=== PATIENT | male | born 1970 | race Caucasian/White ===

== ENCOUNTER 2016-12-11 15:35 | Emergency (ER) | payer OTHER ==
[~2016-12-11] VITALS: Ht 182.9 cm; Wt 111.1 kg
[2016-12-11] MEDS ORDERED: ONDANSETRON PF 4 MG/2 ML VIAL. IV ONE (16:00)
[2016-12-11] MEDS ORDERED: fentaNYL PF VIAL 100 MCG/2 ML VIAL IV ONE ×2 (16:00→17:00)
[2016-12-11] MEDS ORDERED: IV NORMAL SALINE 1000ML BAG 1,000 ML IV ONE ×2 (16:00→17:30)
[2016-12-11] MEDS ORDERED: METOCLOPRAMIDE HCL 10 MG/2 ML VIAL. IV ONE (16:00)
[2016-12-11] MEDS ORDERED: PROCHLORPERAZINE 10 MG/2 ML VIAL. IV ONE (16:00)
[2016-12-11 16:13] LABS: BASO % 1 % (0-3); EOS % 2 % (0-3); HEMATOCRIT 46.6 % (39.0-53.0); HEMOGLOBIN 15.7 g/dL (13.0-17.5); LYMPH # 1.4 x10^3/uL (1.0-4.8); LYMPH % 18 % (24-48); MEAN CORPUSCULAR HEMOGLOBIN 31 pg (25-35); MEAN CORPUSCULAR HGB CONC 34 g/dL (31-37); MEAN CORPUSCULAR VOLUME 91 fL (79-100); MONO % 6 % (0-9); NEUT % 74 % (31-73); PLATELET COUNT 212 x10^3/uL (140-400); RED BLOOD COUNT 5.14 x10^6/uL (4.30-5.70); RED CELL DISTRIBUTION WIDTH 13.7 % (11.5-14.5); WHITE BLOOD COUNT 7.9 x10^3/uL (4.0-11.0)
[2016-12-11 16:22] LABS: CALCIUM 8.8 mg/dL (8.5-10.1); CREATININE 0.9 mg/dL (0.7-1.3); GFR 90.1; POTASSIUM 4.1 mmol/L (3.5-5.1)
[2016-12-11 16:27] LABS: ALBUMIN 3.5 g/dL (3.4-5.0); ALBUMIN/GLOBULIN RATIO 0.9 (1.0-1.7); TOTAL BILIRUBIN 0.7 mg/dL (0.2-1.0); TOTAL PROTEIN 7.2 g/dL (6.4-8.2)
--- NOTE | 2016-12-11 16:39 | RAD ---
Exam performed: CT scan of the head without contrast. Date of Service: 12/11/16. Comparison: None available. Clinical History: Back headache, patient seen flashing lights with nausea and vomiting. Technique: Helical acquisitions are obtained from the foramen magnum to the vertex without intravenous administration of contrast. Findings: The ventricles are midline without evidence of dilatation. Normal matt-white differentiation is maintained. There is no extra axial fluid collection, intraparenchymal hemorrhage or mass lesion. The visualized portions of the orbits, paranasal sinuses and the mastoid air cells appear clear. The calvarium is intact. Impression: 1. No acute intracranial process detected. PQRS Compliance Statement: One or more of the following individualized dose reduction techniques were utilized for this examination: 1. Automated exposure control 2. Adjustment of the mA and/or kV according to patient size 3. Use of iterative reconstruction technique
--- NOTE | 2016-12-11 16:46 | ED.ADGEN ---
Past Medical History Past Medical History: Diabetes-Type II Past Surgical History: No Surgical History Alcohol Use: Rarely Drug Use: None Adult General Chief Complaint Chief Complaint: HEADACHE HPI HPI Patient is a 46 year old male presents with intermittent daily headaches for the past several days. Patient states this current headache began abruptly approximately 4-1/2 hours prior to ED arrival. Associated symptoms include vision changes the present of the lines and visual santo. Patient describes it as dull throbbing located over the back of his head radiating to both temples. Patient denies neck pain or stiffness. He relates his headaches to workplace stress is the most frequently occur while he is working at home. Patient denies recent illnesses. No history of trauma. Patient states that her mother has history of cerebral aneurysms. Patient noted to be hypertensive on ED arrival, but states blood pressure is normally well controlled. Review of Systems Review of Systems ROS as per HPI. Current Medications Current Medications Current Medications Medications (Trade) Dose Ordered Sig/Waqar Start Time Stop Time Status Last Admin Dose Admin Diphenhydramine HCl (Benadryl) 50 mg 1X ONCE 12/11/16 19:00 12/11/16 19:01 DC 12/11/16 18:54 50 MG Fentanyl Citrate (Fentanyl 2ml Vial) 50 mcg 1X ONCE 12/11/16 17:00 12/11/16 17:01 DC 12/11/16 17:05 50 MCG Info (Do NOT chart on this entry -- for MONITORING) 1 each PRN DAILY PRN 12/11/16 17:00 12/13/16 16:59 Iohexol (Omnipaque 350 Mg/ml) 100 ml 1X ONCE 12/11/16 17:00 12/11/16 17:01 DC 12/11/16 17:00 100 ML Metoclopramide HCl (Reglan) 10 mg 1X ONCE 12/11/16 16:00 12/11/16 16:01 DC 12/11/16 16:11 10 MG Ondansetron HCl (Zofran) 4 mg 1X ONCE 12/11/16 16:00 12/11/16 16:01 DC 12/11/16 16:12 4 MG Prochlorperazine Edisylate (Compazine) 10 mg 1X ONCE 12/11/16 16:00 12/11/16 16:01 DC 12/11/16 16:12 10 MG Sodium Chloride 1,000 ml @ 1,000 mls/hr 1X ONCE 12/11/16 17:30 12/11/16 18:29 DC 12/11/16 18:54 1,000 MLS/HR Allergies Allergies Allergies Coded Allergies Type Severity Reaction Last Updated Verified No Known Drug Allergies 12/11/16 No Physical Exam Physical Exam Constitutional: Well developed, well nourished, moderate discomfort secondary pain. HENT: Normocephalic, atraumatic, bilateral external ears normal, oropharynx moist, no oral exudates, nose normal. Eyes: PERRLA, EOMI, photophobia. Neck: Normal range of motion, no tenderness. Cardiovascular:Heart rate regular rhythm. Lungs & Thorax: Bilateral breath sounds clear to auscultation. Abdomen: Bowel sounds normal, soft, no tenderness. Skin: Warm, dry. Back: No tenderness. Extremities: No tenderness, no cyanosis, no clubbing, ROM intact, no edema. Neurologic: Alert and oriented X 3, normal motor function, normal sensory function, no focal deficits noted. Psychologic: Affect normal, judgement normal, mood normal. Current Patient Data Vital Signs Vital Signs Date Time Temp Pulse Resp B/P (MAP) Pulse Ox O2 Delivery O2 Flow Rate FiO2 12/11/16 19:30 87 18 129/66 (87) 98 Room Air 12/11/16 15:49 98.7 98.7 Lab Values Laboratory Tests Test 12/11/16 16:00 White Blood Count 7.9 x10^3/uL (4.0-11.0) Red Blood Count 5.14 x10^6/uL (4.30-5.70) Hemoglobin 15.7 g/dL (13.0-17.5) Hematocrit 46.6 % (39.0-53.0) Mean Corpuscular Volume 91 fL (79-100) Mean Corpuscular Hemoglobin 31 pg (25-35) Mean Corpuscular Hemoglobin Concent 34 g/dL (31-37) Red Cell Distribution Width 13.7 % (11.5-14.5) Platelet Count 212 x10^3/uL (140-400) Neutrophils (%) (Auto) 74 % (31-73) H Lymphocytes (%) (Auto) 18 % (24-48) L Monocytes (%) (Auto) 6 % (0-9) Eosinophils (%) (Auto) 2 % (0-3) Basophils (%) (Auto) 1 % (0-3) Neutrophils # (Auto) 5.8 x10^3uL (1.8-7.7) Lymphocytes # (Auto) 1.4 x10^3/uL (1.0-4.8) Monocytes # (Auto) 0.5 x10^3/uL (0.0-1.1) Eosinophils # (Auto) 0.2 x10^3/uL (0.0-0.7) Basophils # (Auto) 0.0 x10^3/uL (0.0-0.2) Sodium Level 136 mmol/L (136-145) Potassium Level 4.1 mmol/L (3.5-5.1) Chloride Level 99 mmol/L (98-107) Carbon Dioxide Level 26 mmol/L (21-32) Anion Gap 11 (6-14) Blood Urea Nitrogen 11 mg/dL (8-26) Creatinine 0.9 mg/dL (0.7-1.3) Estimated GFR (Cockcroft-Gault) 90.1 BUN/Creatinine Ratio 12 (6-20) Glucose Level 307 mg/dL (70-99) H Calcium Level 8.8 mg/dL (8.5-10.1) Total Bilirubin 0.7 mg/dL (0.2-1.0) Aspartate Amino Transferase (AST) 20 U/L (15-37) Alanine Aminotransferase (ALT) 30 U/L (16-63) Alkaline Phosphatase 76 U/L (46-116) Total Protein 7.2 g/dL (6.4-8.2) Albumin 3.5 g/dL (3.4-5.0) Albumin/Globulin Ratio 0.9 (1.0-1.7) L Laboratory Tests 12/11/16 16:00 Laboratory Tests 12/11/16 16:00 EKG EKG [] Radiology/Procedures Radiology/Procedures [CT head: No acute disease per radiology report] CT angiogram head and neck: Moderate right vertebral artery stenosis no evidence of aneurysm. Impressions: Gen. headache without apparent cause Course & Med Decision Making Course & Med Decision Making Pertinent Labs and Imaging studies reviewed. (See chart for details) [. Worse headache of life. Narcotics, antiemetics given with limited improvement. CT imaging negative for acute aneurysm patient with moderate improvement while in the ED, request discharge home. Patient instructed to follow up with PCP for evaluation of a vertebral artery disease. She restarted on home diabetic medications. Return precautions reviewed.] Fernando Disclaimer Fernando Disclaimer This electronic medical record was generated, in whole or in part, using a voice recognition dictation system. CARLITOS CUMMINGS DO December 11, 2016 16:46
[2016-12-11] MEDS ORDERED: IOHEXOL 350 MG/ML 100 ML VIAL. IV ONE (17:00)
[2016-12-11] MEDS ORDERED: CONTRAST GIVEN MC PRN (17:00)
[2016-12-11] MEDS ORDERED: diphenhydrAMINE 50 MG/ML VIAL IVP ONE (19:00)
[2016-12-11 19:30] VITALS: BP 129/66
--- NOTE | 2016-12-11 19:31 | RAD ---
PROCEDURE CT angiography head and neck with contrast HISTORY Worst headache of life, history of cerebral artery aneurysm TECHNIQUE Exposure: One or more of the following individualized dose reduction techniques were utilized for this exam: 1. Automated exposure control. 2. Adjustment of the mA and/or kV according to patient size. 3. Use of iterative reconstruction technique. Helical CT imaging of the head and neck with multiplanar 3D MIP and volume reconstructions of the vessels characterize vascular anatomy and pathology with 75 milliliters Omnipaque 350 intravenous contrast. All vascular measurements in accordance with the NASCET criteria COMPARISON CT Head December [address] angiography neck: 50 percent stenosis ostium of the right vertebral artery from plaque. No stenosis of the left vertebral artery. Left carotid artery demonstrates a acute angle tortuous turn of the mid cervical internal carotid artery without significant stenosis, plaque or occlusion. Right carotid artery demonstrates no plaque, stenosis or occlusion. Multilevel cervical disc osteophytes with spinal canal and neural foraminal stenoses likely severe several levels. Intracranial CT angiogram: There may be moderate stenosis of the right anterior cavernous carotid artery perhaps due to plaque or could be localized congenital hypoplasia. Minimal focal calcified plaque right cavernous carotid artery separate from the stenosis. No intracranial arterial occlusion or aneurysm. Orbits, paranasal sinuses and mastoids are unremarkable. IMPRESSION CT angiography neck: Moderate stenosis of the right vertebral artery ostium from soft plaque. No stenosis, plaque or occlusion of the left vertebral artery or carotid arteries in the neck. Cervical disc disease as described above. Intracranial CT angiogram: Moderate focal stenosis of the right cavernous carotid artery. No intracranial arterial aneurysm or occlusion. Electronically signed by: Josef Burch MD (December 11, 2016 19:30:27)
== END 2016-12-11 20:23 | disposition home or self-care (01) ==
LOC: ER 15:35
DX: R51 Headache (principal); H53.149 Visual discomfort, unspecified; E11.9 Type 2 diabetes mellitus without complications
CPT/HCPCS: 36415; 70450; 70496; 70498; 80053; 82947; 85027; 96361; 96374; 96375; 96376; 99285; J0780; J1200; J2405; J2765; J3010; J7030; Q9967

== ENCOUNTER 2018-05-14 15:17 | Emergency (ER) | payer OTHER ==
[~2018-05-14] VITALS: Ht 185.4 cm; Wt 109.3 kg
--- NOTE | 2018-05-14 15:44 | PHYS DOC ---
Past Medical History Past Medical History: Diabetes-Type II Past Surgical History: No Surgical History Alcohol Use: Rarely Drug Use: None Adult General Chief Complaint Chief Complaint: LOWER EXT PAIN HPI HPI Patient is a 47 year old male with history of diabetes type 2, osteomyelitis, amputation of second through fourth toes on the left foot, who presents today concerned he could have osteomyelitis on the left great toe/foot. Patient states for the last 10 days he has noted increased swelling warmth and redness to the left great toe. He states he does not have a PCP and is concerned this area could be infected. Patient is not currently on any medications for his diabetes. He states he ran out of the medications 4 months ago. He states he does not have medical insurance hence the reason he has not followed up for his chronic illness patient denies any fever. Denies any nausea vomiting. Denies any injury to the left leg. Review of Systems Review of Systems Constitutional: Denies fever or chills [] Eyes: Denies change in visual acuity, redness, or eye pain [] HENT: Denies nasal congestion or sore throat [] Respiratory: Denies cough or shortness of breath [] Cardiovascular: No additional information not addressed in HPI [] GI: Denies abdominal pain, nausea, vomiting, bloody stools or diarrhea [] : Denies dysuria or hematuria [] Musculoskeletal: Denies back pain or joint pain [] Integument: Concern for osteomyelitis left foot Neurologic: Denies headache, focal weakness or sensory changes [] All other systems were reviewed and found to be within normal limits, except as documented in this note. Current Medications Current Medications Current Medications Medications (Trade) Dose Ordered Sig/Waqar Start Time Stop Time Status Last Admin Dose Admin Insulin Human Regular (HumuLIN R VIAL) 8 unit 1X ONCE 05/14/18 17:30 05/14/18 17:31 DC 05/14/18 18:23 8 UNIT Sodium Chloride 1,000 ml @ 1,000 mls/hr 1X ONCE 05/14/18 17:30 05/14/18 18:29 DC 05/14/18 18:22 1,000 MLS/HR Allergies Allergies Allergies Coded Allergies Type Severity Reaction Last Updated Verified No Known Drug Allergies 12/11/16 No Physical Exam Physical Exam Constitutional: Well developed, well nourished, no acute distress, non-toxic appearance. [] HENT: Normocephalic, atraumatic, bilateral external ears normal, oropharynx moist, no oral exudates, nose normal. [] Eyes: PERRLA, EOMI, conjunctiva normal, no discharge. [] Neck: Normal range of motion, no tenderness, supple, no stridor. [] Cardiovascular:Heart rate regular rhythm, no murmur [] Lungs & Thorax: Bilateral breath sounds clear to auscultation [] Abdomen: Bowel sounds normal, soft, no tenderness, no masses, no pulsatile masses. [] Skin: Left foot with amputated second through fourth toes. Great toe with nail amputation. The skin underneath the foot and great toe is dry, scaly consistent with a chronic fungal infection. There is trace erythema around the area. There is slight swelling over the left great toe. Trace warmth over the left great toe. Full range of motion to the left great toe. +2 left pedal pulse. Cap refill <2 seconds to the left great toe. Fifth toe with a partial amputated nail. No signs of infection Back: No tenderness, no CVA tenderness. [] Extremities: No tenderness, no cyanosis, no clubbing, ROM intact, no edema. [] Neurologic: Alert and oriented X 3, normal motor function, normal sensory function, no focal deficits noted. [] Psychologic: Affect normal, judgement normal, mood normal. [] Current Patient Data Vital Signs Vital Signs Date Time Temp Pulse Resp B/P (MAP) Pulse Ox O2 Delivery O2 Flow Rate FiO2 05/14/18 19:25 97 17 129/71 (90) 94 Room Air 05/14/18 15:25 98.5 98.5 Lab Values Laboratory Tests Test 05/14/18 15:53 05/14/18 19:36 White Blood Count 10.5 x10^3/uL (4.0-11.0) Red Blood Count 4.54 x10^6/uL (4.30-5.70) Hemoglobin 14.5 g/dL (13.0-17.5) Hematocrit 41.3 % (39.0-53.0) Mean Corpuscular Volume 91 fL (79-100) Mean Corpuscular Hemoglobin 32 pg (25-35) Mean Corpuscular Hemoglobin Concent 35 g/dL (31-37) Red Cell Distribution Width 13.5 % (11.5-14.5) Platelet Count 254 x10^3/uL (140-400) Neutrophils (%) (Auto) 74 % (31-73) H Lymphocytes (%) (Auto) 15 % (24-48) L Monocytes (%) (Auto) 8 % (0-9) Eosinophils (%) (Auto) 3 % (0-3) Basophils (%) (Auto) 1 % (0-3) Neutrophils # (Auto) 7.8 x10^3uL (1.8-7.7) H Lymphocytes # (Auto) 1.5 x10^3/uL (1.0-4.8) Monocytes # (Auto) 0.8 x10^3/uL (0.0-1.1) Eosinophils # (Auto) 0.3 x10^3/uL (0.0-0.7) Basophils # (Auto) 0.1 x10^3/uL (0.0-0.2) Erythrocyte Sedimentation Rate 19 (0-15) H Sodium Level 137 mmol/L (136-145) Potassium Level 3.7 mmol/L (3.5-5.1) Chloride Level 99 mmol/L (98-107) Carbon Dioxide Level 22 mmol/L (21-32) Anion Gap 16 (6-14) H Blood Urea Nitrogen 25 mg/dL (8-26) Creatinine 1.3 mg/dL (0.7-1.3) Estimated GFR (Cockcroft-Gault) 58.7 Glucose Level 390 mg/dL (70-99) H Calcium Level 9.1 mg/dL (8.5-10.1) C-Reactive Protein, Quantitative 27.8 mg/L (0-3.3) H Glucose (Fingerstick) 161 mg/dL (70-99) H Laboratory Tests 05/14/18 15:53 Laboratory Tests 05/14/18 15:53 EKG EKG [] Radiology/Procedures Radiology/Procedures []PROCEDURE: FOOT LEFT 3V 3 views left foot 05/14/2018 3:44 PM Indication: redness great toe r/o oesteomylitis. HX OF DIABETES. INFECTION ON SKIN OF FOOT. Comparison: None Findings: Chronic appearing amputations involving the second third and fourth metatarsals noted. No evidence of acute fracture is identified. No erosive changes are identified. Atherosclerotic vascular calcification is noted. No periosteal reaction is identified. IMPRESSION: No radiographic evidence of osteomyelitis or other acute osseous abnormality Electronically signed by: Blayne Ashley MD (05/14/2018 3:58 PM) [facility] DICTATED and SIGNED BY: BLAYNE ASHLEY MD DATE: 05/14/18 1556 Course & Med Decision Making Course & Med Decision Making Pertinent Labs and Imaging studies reviewed. (See chart for details) This is a 47-year-old male patient presenting to the ED today worried he could have osteomyelitis of the left great toe. Patient has history of diabetes. He has noted slight swelling and redness over the left great toe. He has amputation of the second through fourth toes on the left foot. CBC with a normal WBC, BMP with glucose of 390, anion gap is only 16. Patient was given IV fluids as well as insulin glucose 161 prior to discharge. X-rays of the left foot interpreted by radiologist were negative for osteomyelitis. Patient does not have cleared to have any significant redness on the left foot. I put him on cephalexin prophylaxis. Tetanus is up-to-date. Provided him a clinic list for follow-up. Also wrote him his diabetes medicine and blood pressure medications. Dragon Disclaimer Dragon Disclaimer This electronic medical record was generated, in whole or in part, using a voice recognition dictation system. Departure Departure Impression: Primary Impression: Hyperglycemia Disposition: 01 HOME, SELF-CARE Condition: STABLE Referrals: UNKNOWN PCP NAME (PCP) follow up with a primary care doctor from the list provided as soon as you can Patient Instructions: Hyperglycemia Additional Instructions: You were evaluated in the emergency room. You do not have any significant infection on the left foot/toe. We put you on antibiotics prophylaxis, take them as prescribed until completed. Establish care with one of the local clinics provided and follow-up with them. Come back to the ED at any point symptoms worsen. Scripts Cephalexin (CEPHALEXIN) 500 Mg Tablet 1 TAB PO QID, #40 TAB Prov: MESFIN SALGADO APRN 05/14/18 Nortriptyline Hcl (NORTRIPTYLINE HCL) 75 Mg Capsule 75 MG PO DAILY, #90 CAP Prov: MESFIN SALGADO APRN 05/14/18 Atorvastatin Calcium (ATORVASTATIN CALCIUM) 40 Mg Tablet 1 TAB PO DAILY, #30 TAB 5 Refills Prov: MESFIN SALGADO APRN 05/14/18 Lisinopril (LISINOPRIL) 10 Mg Tablet 1 TAB PO DAILY, #90 TAB 1 Refill Prov: MESFIN SALGADO APRN 05/14/18 Metformin Hcl (METFORMIN HCL) 1,000 Mg Tablet 1000 MG PO DAILYWBKFT for ANTI-DIABETIC, #90 TAB 1 Refill Prov: MESFIN SALGADO APRN 05/14/18 MESFIN SALGADO APRN May 14, 2018 15:43
--- NOTE | 2018-05-14 16:01 | RAD ---
3 views left foot 05/14/2018 3:44 PM Indication: redness great toe r/o oesteomylitis. HX OF DIABETES. INFECTION ON SKIN OF FOOT. Comparison: None Findings: Chronic appearing amputations involving the second third and fourth metatarsals noted. No evidence of acute fracture is identified. No erosive changes are identified. Atherosclerotic vascular calcification is noted. No periosteal reaction is identified. IMPRESSION: No radiographic evidence of osteomyelitis or other acute osseous abnormality Electronically signed by: Blayne Costello MD (05/14/2018 3:58 PM) [facility]
[2018-05-14 16:05] LABS: BASO # 0.1 x10^3/uL (0.0-0.2); BASO % 1 % (0-3); EOS # 0.3 x10^3/uL (0.0-0.7); EOS % 3 % (0-3); HEMATOCRIT 41.3 % (39.0-53.0); HEMOGLOBIN 14.5 g/dL (13.0-17.5); LYMPH # 1.5 x10^3/uL (1.0-4.8); LYMPH % 15 % (24-48); MEAN CORPUSCULAR HEMOGLOBIN 32 pg (25-35); MEAN CORPUSCULAR HGB CONC 35 g/dL (31-37); MEAN CORPUSCULAR VOLUME 91 fL (79-100); MONO # 0.8 x10^3/uL (0.0-1.1); MONO % 8 % (0-9); NEUT # 7.8 x10^3uL (1.8-7.7); NEUT % 74 % (31-73); PLATELET COUNT 254 x10^3/uL (140-400); RED BLOOD COUNT 4.54 x10^6/uL (4.30-5.70); RED CELL DISTRIBUTION WIDTH 13.5 % (11.5-14.5); WHITE BLOOD COUNT 10.5 x10^3/uL (4.0-11.0)
[2018-05-14 16:17] LABS: CALCIUM 9.1 mg/dL (8.5-10.1); CREATININE 1.3 mg/dL (0.7-1.3); GFR 58.7; POTASSIUM 3.7 mmol/L (3.5-5.1)
[2018-05-14 16:19] LABS: C-REACTIVE PROTEIN 27.8 mg/L (0-3.3)
[2018-05-14] MEDS ORDERED: IV NORMAL SALINE 1000ML BAG 1,000 ML IV ONE (17:30)
[2018-05-14] MEDS ORDERED: INSULIN REGULAR 100 UNIT/ML 3ML VIAL. IV ONE (17:30)
[2018-05-14 19:25] VITALS: BP 129/71
[2018-05-14] MEDS ORDERED: NORT75CA PO (19:38)
[2018-05-14] MEDS ORDERED: ATOR40TA59 PO (19:38)
[2018-05-14] MEDS ORDERED: LISI10TA2 PO (19:38)
[2018-05-14] MEDS ORDERED: METF10007 PO (19:38)
[2018-05-14] MEDS ORDERED: CEPH500T PO (19:53)
== END 2018-05-14 19:44 | disposition home or self-care (01) ==
LOC: ER 15:17
DX: E11.65 Type 2 diabetes mellitus with hyperglycemia (principal); L53.8 Other specified erythematous conditions; Z89.412 Acquired absence of left great toe
CPT/HCPCS: 36415; 73630; 80048; 82962; 85025; 85651; 86140; 96361; 96374; 99285; J1815; J7030

== ENCOUNTER → 2019-08-11 | Outpatient (CLI) | payer OTHER ==
[2019-08-05 11:00] VITALS: BP 136/76
[~2019-08-11] MED LIST: ATOR40TA59 PO; CEPH500T PO; GENTAM TOP; HYDR12.58 PO; INSU100I17 SQ; INSU100V37 SQ; LEVO75TA5 PO; LISI-334 PO; LISI10TA2 PO; METF10007 PO; NORT75CA PO; SUMA100T4 PO
[2019-08-11 14:47] LABS: BASO # 0.1 x10^3/uL (0.0-0.2); BASO % 1 % (0-3); EOS # 0.2 x10^3/uL (0.0-0.7); EOS % 2 % (0-3); HEMATOCRIT 38.7 % (39.0-53.0); HEMOGLOBIN 13.3 g/dL (13.0-17.5); LYMPH # 1.8 x10^3/uL (1.0-4.8); LYMPH % 22 % (24-48); MEAN CORPUSCULAR HEMOGLOBIN 31 pg (25-35); MEAN CORPUSCULAR HGB CONC 34 g/dL (31-37); MEAN CORPUSCULAR VOLUME 89 fL (79-100); MONO # 0.5 x10^3/uL (0.0-1.1); MONO % 7 % (0-9); NEUT # 5.7 x10^3/uL (1.8-7.7); NEUT % 69 % (31-73); PLATELET COUNT 268 x10^3/uL (140-400); RED BLOOD COUNT 4.34 x10^6/uL (4.30-5.70); RED CELL DISTRIBUTION WIDTH 13.4 % (11.5-14.5); WHITE BLOOD COUNT 8.3 x10^3/uL (4.0-11.0)
[2019-08-11 14:56] LABS: CALCIUM 9.3 mg/dL (8.5-10.1); CREATININE 1.1 mg/dL (0.7-1.3); GFR 70.9; POTASSIUM 5.3 mmol/L (3.5-5.1)
== END | disposition home or self-care (01) ==
LOC: SPEC 14:38
PROVIDERS: ATTEND Internal Medicine Infectious Disease
DX: Z51.81 Encounter for therapeutic drug level monitoring (principal); Z79.2 Long term (current) use of antibiotics
CPT/HCPCS: 36415; 80048; 85025; 85651

== ENCOUNTER → 2019-08-18 | Outpatient (CLI) | payer OTHER ==
[2019-08-05 11:00] VITALS: BP 136/76
[2019-08-18 15:58] LABS: BASO % 1 % (0-3); EOS # 0.2 x10^3/uL (0.0-0.7); EOS % 3 % (0-3); HEMATOCRIT 35.4 % (39.0-53.0); HEMOGLOBIN 12.1 g/dL (13.0-17.5); LYMPH # 1.8 x10^3/uL (1.0-4.8); LYMPH % 24 % (24-48); MEAN CORPUSCULAR HEMOGLOBIN 31 pg (25-35); MEAN CORPUSCULAR HGB CONC 34 g/dL (31-37); MEAN CORPUSCULAR VOLUME 89 fL (79-100); MONO # 0.5 x10^3/uL (0.0-1.1); MONO % 6 % (0-9); NEUT # 4.9 x10^3/uL (1.8-7.7); NEUT % 66 % (31-73); PLATELET COUNT 210 x10^3/uL (140-400); RED BLOOD COUNT 3.96 x10^6/uL (4.30-5.70); WHITE BLOOD COUNT 7.5 x10^3/uL (4.0-11.0)
[2019-08-18 16:36] LABS: ALBUMIN 3.1 g/dL (3.4-5.0); CALCIUM 8.7 mg/dL (8.5-10.1); CREATININE 0.8 mg/dL (0.7-1.3); GFR 102.3; PHOSPHORUS 3.5 mg/dL (2.6-4.7); POTASSIUM 4.5 mmol/L (3.5-5.1)
== END | disposition home or self-care (01) ==
LOC: SPEC 15:29
PROVIDERS: ATTEND Internal Medicine Infectious Disease
DX: Z79.2 Long term (current) use of antibiotics (principal)
CPT/HCPCS: 36415; 80069; 85025; 85651

== ENCOUNTER → 2019-08-25 | Outpatient (CLI) | payer OTHER ==
[2019-08-05 11:00] VITALS: BP 136/76
== END | disposition home or self-care (01) ==
LOC: SPEC 16:32
PROVIDERS: ATTEND Internal Medicine Infectious Disease
DX: Z79.2 Long term (current) use of antibiotics (principal)
CPT/HCPCS: 36415

== ENCOUNTER → 2019-09-08 | Outpatient (CLI) | payer OTHER ==
[2019-08-05 11:00] VITALS: BP 136/76
[2019-09-08 15:39] LABS: BASO % 1 % (0-3); EOS # 0.1 x10^3/uL (0.0-0.7); EOS % 3 % (0-3); HEMATOCRIT 35.5 % (39.0-53.0); HEMOGLOBIN 12.2 g/dL (13.0-17.5); LYMPH # 1.8 x10^3/uL (1.0-4.8); LYMPH % 30 % (24-48); MEAN CORPUSCULAR HEMOGLOBIN 31 pg (25-35); MEAN CORPUSCULAR HGB CONC 34 g/dL (31-37); MEAN CORPUSCULAR VOLUME 90 fL (79-100); MONO # 0.4 x10^3/uL (0.0-1.1); MONO % 7 % (0-9); NEUT # 3.5 x10^3/uL (1.8-7.7); NEUT % 60 % (31-73); PLATELET COUNT 242 x10^3/uL (140-400); RED BLOOD COUNT 3.96 x10^6/uL (4.30-5.70); RED CELL DISTRIBUTION WIDTH 13.5 % (11.5-14.5); WHITE BLOOD COUNT 5.9 x10^3/uL (4.0-11.0)
[2019-09-08 16:22] LABS: ALBUMIN 3.5 g/dL (3.4-5.0); CALCIUM 8.8 mg/dL (8.5-10.1); GFR 79.1; PHOSPHORUS 2.6 mg/dL (2.6-4.7); POTASSIUM 4.1 mmol/L (3.5-5.1)
== END | disposition home or self-care (01) ==
LOC: SPEC 15:28
PROVIDERS: ATTEND Internal Medicine Infectious Disease
DX: Z79.2 Long term (current) use of antibiotics (principal)
CPT/HCPCS: 36415; 80069; 85025; 85651

== ENCOUNTER → 2019-09-15 | Outpatient (CLI) | payer OTHER ==
[2019-08-05 11:00] VITALS: BP 136/76
[2019-09-15 15:55] LABS: BASO % 1 % (0-3); EOS # 0.1 x10^3/uL (0.0-0.7); EOS % 3 % (0-3); HEMATOCRIT 37.6 % (39.0-53.0); HEMOGLOBIN 12.8 g/dL (13.0-17.5); LYMPH # 1.2 x10^3/uL (1.0-4.8); LYMPH % 25 % (24-48); MEAN CORPUSCULAR HEMOGLOBIN 30 pg (25-35); MEAN CORPUSCULAR HGB CONC 34 g/dL (31-37); MEAN CORPUSCULAR VOLUME 89 fL (79-100); MONO # 0.5 x10^3/uL (0.0-1.1); MONO % 11 % (0-9); NEUT % 62 % (31-73); PLATELET COUNT 203 x10^3/uL (140-400); RED BLOOD COUNT 4.22 x10^6/uL (4.30-5.70); WHITE BLOOD COUNT 4.8 x10^3/uL (4.0-11.0)
[2019-09-15 16:07] LABS: ALBUMIN 3.4 g/dL (3.4-5.0); CALCIUM 8.9 mg/dL (8.5-10.1); GFR 79.1; PHOSPHORUS 3.4 mg/dL (2.6-4.7); POTASSIUM 4.3 mmol/L (3.5-5.1)
== END | disposition home or self-care (01) ==
LOC: SPEC 15:42
PROVIDERS: ATTEND Internal Medicine Infectious Disease
DX: Z79.2 Long term (current) use of antibiotics (principal)
CPT/HCPCS: 36415; 80069; 85025; 85651

== ENCOUNTER 2020-12-17 11:48 | Day surgery (SDC) | payer OTHER ==
[~2020-12-17] VITALS: Ht 182.9 cm; Wt 104.8 kg
[~2020-12-17 11:48] MED LIST changes: -LISI-334 PO; +LISI10TA16 PO; -LISI10TA2 PO; +LISI20TA18 PO
[2020-12-17] MEDS ORDERED: PREG150C PO (11:49)
[2020-12-17] MEDS: INSULIN LISPRO 100 UNIT/ML 3ML VIAL for OP,RR ONLY. SQ PRN ×2 (12:15→14:07)
[2020-12-17] MEDS ORDERED: PROPOFOL 10 MG/ML (20ML) VIAL. IV ONE (12:24)
[2020-12-17] MEDS ORDERED: LIDOCAINE 2% PF 5 ML VIAL. ONE (12:24)
[2020-12-17] MEDS ORDERED: fentaNYL PF VIAL 100 MCG/2 ML VIAL ONE (12:25)
[2020-12-17 12:34] LABS: BASO # 0.1 x10^3/uL (0.0-0.2); BASO % 1 % (0-3); EOS # 0.1 x10^3/uL (0.0-0.7); EOS % 2 % (0-3); HEMOGLOBIN 13.2 g/dL (13.0-17.5); LYMPH # 1.8 x10^3/uL (1.0-4.8); LYMPH % 26 % (24-48); MEAN CORPUSCULAR HEMOGLOBIN 31 pg (25-35); MEAN CORPUSCULAR HGB CONC 35 g/dL (31-37); MEAN CORPUSCULAR VOLUME 88 fL (79-100); MONO # 0.5 x10^3/uL (0.0-1.1); MONO % 7 % (0-9); NEUT # 4.4 x10^3/uL (1.8-7.7); NEUT % 64 % (31-73); PLATELET COUNT 226 x10^3/uL (140-400); RED BLOOD COUNT 4.31 x10^6/uL (4.30-5.70); WHITE BLOOD COUNT 6.9 x10^3/uL (4.0-11.0)
[2020-12-17 12:44] LABS: CALCIUM 8.3 mg/dL (8.5-10.1); CREATININE 0.9 mg/dL (0.7-1.3); GFR 88.6; POTASSIUM 4.2 mmol/L (3.5-5.1)
[2020-12-17] MEDS ORDERED: LIDOCAINE 1% Multi-Dose 20 ML VIAL. ONE (12:53)
[2020-12-17] MEDS ORDERED: SURGICEL FIBRILLAR 1X2 EACH. ONE (12:53)
[2020-12-17] MEDS ORDERED: IV RINGERS,LACTATED 1000ML 1,000 ML IV SCH (13:00)
[2020-12-17] MEDS ORDERED: HYDR-2761 PO (13:58)
[2020-12-17] MEDS ORDERED: CEPH750C9 PO (13:58)
--- NOTE | 2020-12-17 14:04 | DISCH ---
DISCHARGE INSTRUCTIONS Condition on Discharge Condition on Discharge: Stable Activity After Discharge Activity Instructions for Disc: Other, see below Other activity instructions: limit activity, elevate leg, heel touch only Bathing Instructions: Shower-keep dressing dry, No Tub Bath until see Driving Instructions after Dis: Do not drive Diet after Discharge Diet after Discharge: Diabetic No Calorie Level Contacting the after DC Call your doctor for: If your condition worsens Follow-Up [facility] will give you time Follow Up With: Follow up with Dr. Nguyen in one month, call for appointment [phone] DUARTE HAILE APRN December 17, 2020 14:04
--- NOTE | 2020-12-17 14:09 | PDOC ---
BRIEF OPERATIVE NOTE Date: December 17, 2020 Pre-Op Diagnosis Left foot ulcer Post-Op Diagnosis same Procedure Performed Excisional debridement of skin, subcutaneous tissue and bone left foot wound. Surgeon Dr. Nguyen Market Research Analyst Duarte Haile NP Anesthesia Type: General Blood Loss 10cc Specimens Obtained culture left foot Findings adequate bleeding from surgical site Complications none Operative Note see dictated note DUARTE HAILE [employer] FORMER December 17, 2020 14:09
[2020-12-17] MEDS ORDERED: INSULIN LISPRO 100 UNIT/ML 3ML VIAL for OP,RR ONLY. SQ ONE ×2 (14:10)
--- NOTE | 2020-12-17 14:32 | OP ---
DATE OF SURGERY: 12/17/2020 SURGEON: Catrina Nguyen MD. HEAD SAWYER: Zee Soriano, nurse practitioner. PREOPERATIVE DIAGNOSIS: Left foot with gangrene and cellulitis at his transmetatarsal amputation distal stump. POSTOPERATIVE DIAGNOSIS: Left foot with gangrene and cellulitis at his transmetatarsal amputation distal stump. OPERATION PERFORMED: Excision of gangrene on the distal stump of the left transmetatarsal amputation sharply excising necrotic skin, subcutaneous tissue and the distal aspect of the first metatarsal bone done in the open fashion. Measurements after this debridement were 3 cm in length x 2 cm in width x 3 cm in depth. ANESTHESIA USED: General anesthesia. INDICATIONS: The patient is a 50-year-old male who has undergone previous amputations of all the toes on his left foot. He has residual stumps of the toes at the area of the second toe, which has become an area of gangrene with surrounding cellulitis. There has also been a small amount of drainage. Recommendations have been made for a surgical excision of this gangrene, likely done in the open fashion with a wound VAC dressing because of the infection. Informed consent was obtained including the need for long-term wound care and possible need for further debridements or amputations in the future. BLOOD LOSS: 10 mL. DESCRIPTION OF PROCEDURE: The patient was brought to the operating room and placed on table in supine position. He received general anesthesia monitored throughout the case by the anesthesiologist. The left foot and ankle were circumferentially prepped and draped in normal sterile fashion. The distal stump of the transmetatarsal amputation has an area of gangrene where there were some residual tissues from his amputation sites. I made an elliptical incision around the gangrene through healthy tissue, dissected down through the subcutaneous tissue and scar tissue and then this was down to the first metatarsal bone region. Using a rongeur, I removed the distal aspect of the first metatarsal bone, debriding the wound deep enough in order for this to be able to close with a wound VAC dressing. All necrotic tissue was removed. We did take cultures after incising into the gangrene. There was good bleeding throughout the wound bed, which was controlled with electrocautery. There was little bit too much bleeding to place the wound VAC dressing today. Therefore, we irrigated the wound with copious amounts of antibiotic solution. We packed the open wound with Aquacel soaked with saline, covered with an ABD pad, arms were covered with Xeroform and ABD pad, Kerlix and an Samuel bandage. He tolerated the surgery with no immediate complications. Zee Soriano was scrubbed throughout the entire length of the case for debridement and dressing placements. BRIAN/RADHA DR: Jessie TID: [id number]
[2020-12-17 14:40] VITALS: BP 132/81
[2020-12-17] MEDS ORDERED: HYDROcodone/APAP 5/325MG 1 TAB TABLET PO ONE (15:00)
== END 2020-12-17 15:30 | disposition home or self-care (01) ==
LOC: SURG 11:48
PROVIDERS: ATTEND Surgery Vascular Surgery
DX: I96 Gangrene, not elsewhere classified (principal); I10 Essential (primary) hypertension; E78.00 Pure hypercholesterolemia, unspecified; E03.9 Hypothyroidism, unspecified; E11.9 Type 2 diabetes mellitus without complications; G47.30 Sleep apnea, unspecified; J44.9 Chronic obstructive pulmonary disease, unspecified; F32.9 Major depressive disorder, single episode, unspecified; Z86.73 Personal history of transient ischemic attack (TIA), and cerebral infarction without residual deficits; Z79.84 Long term (current) use of oral hypoglycemic drugs; Z79.899 Other long term (current) drug therapy; Z98.890 Other specified postprocedural states; Z88.8 Allergy status to other drugs, medicaments and biological substances; Z72.89 Other problems related to lifestyle; Z89.432 Acquired absence of left foot; Z20.822 Contact with and (suspected) exposure to COVID-19
CPT/HCPCS: 11044; 36415; 80048; 82962; 85025; 87071; 87075; 87426; A4364; A4930; A6197; A6253; A6402; A6449; J0690; J1815; J2704; J3010; J3490; 87077; 87186; A4452; A4657; A6443; A6455; J7040

== ENCOUNTER → 2020-12-23 | Outpatient (CLI) | payer OTHER ==
[~2020-12-23] VITALS: Ht 182.9 cm; Wt 109.5 kg
[~2020-12-23] MED LIST changes: +CEPH750C9 PO; +HYDR-2761 PO; +PREG150C PO
[2020-12-23 10:24] VITALS: BP 127/78
--- NOTE | 2020-12-23 12:11 | RAD ---
Site ID: [id number] Site ID: [id number] EXAMINATION: Ultrasound and Fluoroscopic guided PICC line placement. (CPT 23001, 25534, 20059) INDICATION: Poor IV access, patient needs IV antibiotics.. CONSENT: Informed consent was obtained. The risks, benefits, potential complications and alternatives were reviewed and all questions answered. No sedation Flouroscopy-Radiation exposure: Kerma Air Product (in mGycm2): 1 PROCEDURE: After maximal sterile barrier technique preparation and draping, 1% lidocaine was utilized for local anesthesia. Initial ultrasound examination demonstrated patent right cephalic and basilic veins. . The right ceph alic vein is deemed appropriate for access in mid arm . Access into the left brachial vein was obtained with a 21-gauge needle was live ultrasound guidance. A 0.018 wire is introduced and advanced into the SVC without difficulty. Subsequently, a 5 [place] pee l-away sheath is introduced. The measurement performed from the skin site to the cavoatrial junction which was 47, and the PICC catheter was trimmed to this length. The single lumen lumen 4French PICC l ine was advanced through the peel-away sheath and the PICC line tip was confirmed to be at the distal SVC. Consequently the peel-away sheath was removed and the PICC line was fully advanced into the cav oatrial junction. Good blood return is seen with both the side ports flushed with saline. The patient tolerated the procedure well with no immediate complications. FINDINGS: Patent right cephalic vein. IMPRESSION: Single-lumen 4 Mozambican PICC line placed through the right cephalic vein with the tip at th e cavoatrial junction.. Electronically signed by: Denzel Pool MD (12/23/2020 12:09 PM) [id number]
== END | disposition home or self-care (01) ==
LOC: INTRAD 09:33
PROVIDERS: ATTEND Internal Medicine Infectious Disease
DX: Z45.2 Encounter for adjustment and management of vascular access device (principal); M01.X22 Direct infection of left elbow in infectious and parasitic diseases classified elsewhere; E78.00 Pure hypercholesterolemia, unspecified; E03.9 Hypothyroidism, unspecified; E11.9 Type 2 diabetes mellitus without complications; I10 Essential (primary) hypertension; J44.9 Chronic obstructive pulmonary disease, unspecified; F32.9 Major depressive disorder, single episode, unspecified; Z86.73 Personal history of transient ischemic attack (TIA), and cerebral infarction without residual deficits; Z79.899 Other long term (current) drug therapy; Z98.890 Other specified postprocedural states; Z79.4 Long term (current) use of insulin; Z72.89 Other problems related to lifestyle; Z88.8 Allergy status to other drugs, medicaments and biological substances
CPT/HCPCS: 36573; C1751; C1892; 77001

== ENCOUNTER → 2021-01-12 | Outpatient (CLI) | payer OTHER ==
[~2021-01-12] VITALS: Ht 185.4 cm; Wt 106.0 kg
[~2021-01-12] MED LIST changes: +LIDOCAINE 1%/EPI 1:100,000 20 ML VIAL. SQ ONE; +LIDOCAINE WITH 8.4% SOD BICARB 3 ML DISP.SYRIN. ONE; +MIDAZOLAM HCL/PF 2 MG/2 ML VIAL. ONE; +fentaNYL PF VIAL 100 MCG/2 ML VIAL ONE
[2021-01-12 08:47] VITALS: BP 140/87
--- NOTE | 2021-01-12 09:46 | NUR ---
Patient taken to outpatient for IV infusion through new Power PICC in R chest. Notified Zaida RN in outpatient that line needs Heparin locked after use. Also notified RN that patient needs to sit up for 2 hours post placement to help prevent bleeding. Instructions provided on line, infection prevention. Patient verbalized understanding. All belongings taken w/ patient at time of d/c.
--- NOTE | 2021-01-12 13:15 | RAD ---
Placement of tunneled central venous catheter Clinical Indication: Failed right upper extremity PICC line Fluoro Time: 0.7 minutes Dose area product: 2 Key centimeter squared Sterility: All elements of maximal sterile barrier technique including the use of a cap, mask, steril e gown, sterile gloves, large sterile sheet, appropriate hand hygiene, and 2% chlorhexidine for cutan eous antisepsis (or acceptable alternative antiseptic per current guidelines) were followed for this procedure. Consent: The procedure was explained in its entirety to the patient or the patients designated repres entative by a member of the treatment team, including a discussion of the risks, benefits and commonl y accepted alternatives to the procedure, as well as the expected consequences of no therapy whatsoev er. Discussion of the risks included, but was not limited to, those that are most frequent and thos e that are rare but possibly severe or life-threatening, as well as the possibility of unforeseen com plications. Technique and Findings: Following informed consent, the patient was prepped and draped in the usual s terile fashion. Ultrasound interrogation of the right neck revealed patency and compressibility of t he right internal jugular vein. A 21-gauge micropuncture was then used to gain access to this vein u nder ultrasound guidance. A hard copy ultrasound image was recorded. The needle was exchanged over a wire for a peel-away sheath. The skin over the right anterior chest wall was copiously anesthetized with 1% Lidocaine plus Epinephrine and a small dermatotomy was made. A cuffed central venous cathete r was then advanced from the terminal tenotomy subcutaneously towards the neck dermatotomy and deploy ed through a the peel-away sheath under fluoroscopic guidance such that the distal tip resided in the cavoatrial junction. The catheter was found to flush and aspirate normally. Sterile dressings were a pplied. No immediate complications were identified Impression: Tunneled central venous catheter placement with fluoroscopic guidance Electronically signed by: Blayne Costello MD (01/12/2021 1:13 PM) [id number]
== END | disposition home or self-care (01) ==
LOC: INTRAD 08:24
PROVIDERS: ATTEND Internal Medicine Nephrology
DX: Z45.2 Encounter for adjustment and management of vascular access device (principal); I10 Essential (primary) hypertension; G47.30 Sleep apnea, unspecified; K21.9 Gastro-esophageal reflux disease without esophagitis; E11.9 Type 2 diabetes mellitus without complications; E03.9 Hypothyroidism, unspecified; F32.9 Major depressive disorder, single episode, unspecified; E11.628 Type 2 diabetes mellitus with other skin complications; E11.69 Type 2 diabetes mellitus with other specified complication; E11.40 Type 2 diabetes mellitus with diabetic neuropathy, unspecified; E11.52 Type 2 diabetes mellitus with diabetic peripheral angiopathy with gangrene; E11.621 Type 2 diabetes mellitus with foot ulcer; M19.90 Unspecified osteoarthritis, unspecified site; G43.909 Migraine, unspecified, not intractable, without status migrainosus; Z79.899 Other long term (current) drug therapy; Z79.4 Long term (current) use of insulin; Z91.030 Bee allergy status; Z98.49 Cataract extraction status, unspecified eye; Z98.890 Other specified postprocedural states; Z86.73 Personal history of transient ischemic attack (TIA), and cerebral infarction without residual deficits
CPT/HCPCS: 36558; 76937; 77001; C1751; C1892; J3490

== ENCOUNTER 2021-02-21 07:31 | Outpatient (CLI) | payer OTHER ==
[~2021-02-21] VITALS: Ht 182.9 cm; Wt 108.2 kg
[~2021-02-21 07:31] MED LIST changes: -LIDOCAINE 1%/EPI 1:100,000 20 ML VIAL. SQ ONE; -LIDOCAINE WITH 8.4% SOD BICARB 3 ML DISP.SYRIN. ONE; -MIDAZOLAM HCL/PF 2 MG/2 ML VIAL. ONE; -fentaNYL PF VIAL 100 MCG/2 ML VIAL ONE
[2021-02-21 08:01] VITALS: BP 140/85
[2021-02-21] MEDS ORDERED: DOXY-181 PO (08:05)
[2021-02-21] MEDS ORDERED: AMOX1TAB58 PO (08:05)
[2021-02-21] MEDS ORDERED: LIDOCAINE 1%/EPI 1:100,000 20 ML VIAL. ONE (08:33)
[2021-02-21] MEDS ORDERED: LIDOCAINE 1%/EPI 1:100,000 20 ML VIAL. SQ ONE (08:45)
[2021-02-21 09:04] VITALS: BP 142/78
--- NOTE | 2021-02-21 09:05 | NUR ---
incision care reviewed with patient. Pt discharge to home
--- NOTE | 2021-02-21 09:41 | RAD ---
PROCEDURE: REMOVAL OF A TUNNELED CENTRAL VENOUS CATHETER (CPT 77366). HISTORY: IV antibiotics, course completed, no longer needing CVC SEDATION: None needed. TECHNIQUE: Prior to beginning the procedure, Prosser Protocol was used to confirm the patient's evelyn ntity and planned procedure. A fluoroscopic hydrochloric area supervisor image was obtained demonstrating the right chest ca theter in stable position. The patient was prepped and draped in the appropriate sterile fashion. Uriostegui d hygiene was performed. 1% local lidocaine was utilized for anesthesia. Blunt dissection was used to free the catheter cuff. The catheter was then removed and pressure held at the site to obtain hemostasis. A sterile dressing was then applied. A final fluoroscopic spot im age was obtained demonstrating interval removal of the right catheter has its entirety. ESTIMATED BLOOD LOSS: None. COMPLICATIONS: None. FINDINGS: The catheter exit site showed no visible sign of infection. The catheter was removed in its entirety. IMPRESSION: Successful removal of the tunneled right internal jugular venous catheter. Electronically signed by: Flavio Martino (02/21/2021 9:39 AM) [id number]
== END 2021-02-21 09:06 | disposition home or self-care (01) ==
LOC: INTRAD 07:31
PROVIDERS: ATTEND Internal Medicine Infectious Disease
DX: Z45.2 Encounter for adjustment and management of vascular access device (principal); I10 Essential (primary) hypertension; E78.00 Pure hypercholesterolemia, unspecified; J44.9 Chronic obstructive pulmonary disease, unspecified; K21.9 Gastro-esophageal reflux disease without esophagitis; E03.9 Hypothyroidism, unspecified; E11.9 Type 2 diabetes mellitus without complications; F32.9 Major depressive disorder, single episode, unspecified; G47.30 Sleep apnea, unspecified; Z86.73 Personal history of transient ischemic attack (TIA), and cerebral infarction without residual deficits; Z79.4 Long term (current) use of insulin; Z79.899 Other long term (current) drug therapy; Z98.890 Other specified postprocedural states; Z88.8 Allergy status to other drugs, medicaments and biological substances
CPT/HCPCS: 36589; 77001; J3490

== ENCOUNTER → 2021-03-02 | Outpatient (CLI) | payer OTHER ==
[2021-02-21 09:04] VITALS: BP 142/78
[~2021-03-02] MED LIST changes: +AMOX1TAB58 PO; +DOXY-181 PO
[2021-03-02 08:23] LABS: BASO # 0.1 x10^3/uL (0.0-0.2); BASO % 1 % (0-3); EOS # 0.1 x10^3/uL (0.0-0.7); EOS % 2 % (0-3); HEMATOCRIT 42.5 % (39.0-53.0); HEMOGLOBIN 14.8 g/dL (13.0-17.5); LYMPH # 1.3 x10^3/uL (1.0-4.8); LYMPH % 20 % (24-48); MEAN CORPUSCULAR HEMOGLOBIN 31 pg (25-35); MEAN CORPUSCULAR HGB CONC 35 g/dL (31-37); MEAN CORPUSCULAR VOLUME 89 fL (79-100); MONO # 0.5 x10^3/uL (0.0-1.1); MONO % 9 % (0-9); NEUT # 4.4 x10^3/uL (1.8-7.7); NEUT % 69 % (31-73); PLATELET COUNT 282 x10^3/uL (140-400); RED BLOOD COUNT 4.77 x10^6/uL (4.30-5.70); RED CELL DISTRIBUTION WIDTH 14.1 % (11.5-14.5); WHITE BLOOD COUNT 6.4 x10^3/uL (4.0-11.0)
[2021-03-02 08:46] LABS: CALCIUM 9.3 mg/dL (8.5-10.1); GFR 78.5; POTASSIUM 4.8 mmol/L (3.5-5.1)
[2021-03-03 06:20] LABS: HEMOGLOBIN A1C 10.3 % (4.8-5.6)
== END ==
LOC: LAB 08:03
PROVIDERS: ATTEND Psychiatry & Neurology Neurology
DX: E11.621 Type 2 diabetes mellitus with foot ulcer (principal); L97.524 Non-pressure chronic ulcer of other part of left foot with necrosis of bone
CPT/HCPCS: 36415; 80048; 82306; 83036; 85025; 85651

== ENCOUNTER 2021-03-14 07:56 | Emergency (ER) | payer OTHER | END 2021-03-14 10:00 | disposition left against medical advice (07) | LOC: ER 07:56 | DX: R73.9 Hyperglycemia, unspecified (principal); Z53.21 Procedure and treatment not carried out due to patient leaving prior to being seen by health care provider ==